=== PATIENT | male | born 1995 | race Two or more races ===

== ENCOUNTER 2020-09-27 17:51 | Emergency (ER) | payer SELFPAY ==
[~2020-09-27] VITALS: Ht 167.6 cm; Wt 90.9 kg
--- NOTE | 2020-09-27 19:37 | PHYS DOC ---
Past Medical History Past Medical History: No Pertinent History (MO TRIPATHI SUPERVISOR) Past Surgical History: No Surgical History (MO TRIPATHI APRN) Smoking Status: Never Smoker Alcohol Use: Occasionally (MO TRIPATHI APRN) General Adult EDM: Chief Complaint: COUGH HPI: HPI: Patient is a 24 year old male who presents with has had a cough since early August and for the last couple days has started running a fever. States every time he coughs he has lung pain and chest pain and shortness of breath. He states at times he gets into a coughing fit and it makes him dizzy or lightheaded. Patient has a temperature of 100.7 here in the ED. He states that he does not really have any pain until he coughs. He states that he is been coughing up phlegm with specks of blood in it. Patient states he been taking DayQuil and [id number] cough medication and cough drops. He states that 2 days ago he went and picked his mother up from the airport and she is Covid positive but she sat in the backseat and they had mask on. Patient denies any past medical history and states he does not smoke or vape. (OM TRIPATHI SUPERVISOR) Review of Systems: Review of Systems: Constitutional: + fever or chills. [] Eyes: Denies change in visual acuity. [] HENT: Denies nasal congestion or sore throat. [] Respiratory: + cough or +shortness of breath. [] Cardiovascular: +chest pain or denies edema. [] GI: Denies abdominal pain, nausea, vomiting, bloody stools or diarrhea. [] : Denies dysuria. [] Musculoskeletal: Denies back pain or joint pain. [] Integument: Denies rash. [] Neurologic: Denies headache, focal weakness or sensory changes. [] Endocrine: Denies polyuria or polydipsia. [] Lymphatic: Denies swollen glands. [] Psychiatric: Denies depression or anxiety. [] (MO TRIPATHI APRN) Heart Score: Risk Factors: Risk Factors: DM, Current or recent (<one month) smoker, HTN, HLP, family history of CAD, obesity. Risk Scores: Score 0 - 3: 2.5% MACE over next 6 weeks - Discharge Home Score 4 - 6: 20.3% MACE over next 6 weeks - Admit for Clinical Observation Score 7 - 10: 72.7% MACE over next 6 weeks - Early Invasive Strategies (MO TRIPATHI APRN) Current Medications: Current Medications Medications (Trade) Dose Ordered Sig/Negro Start Time Stop Time Status Last Admin Dose Admin Benzonatate (Tessalon Perle) 100 mg 1X ONCE 09/27/20 20:00 09/27/20 20:01 Ibuprofen (Motrin) 600 mg 1X ONCE 09/27/20 20:00 09/27/20 20:01 Prednisone (Prednisone) 50 mg 1X ONCE 09/27/20 20:00 09/27/20 20:01 (MO TRIPATHI APRN) Allergies: Allergies: Allergies Coded Allergies Type Severity Reaction Last Updated Verified No Known Drug Allergies 09/27/20 No (MO TRIPATHI APRN) Physical Exam: PE: Constitutional: Well developed, well nourished, no acute distress, non-toxic appearance. [] HENT: Normocephalic, atraumatic, bilateral external ears normal, oropharynx moist, no oral exudates, nose normal. [] Eyes: PERRLA, EOMI, conjunctiva normal, no discharge. [] Neck: Normal range of motion, no tenderness, supple, no stridor. [] Cardiovascular:Heart rate regular rhythm, no murmur [] Lungs & Thorax: Upper bilateral breath sounds clear lower diminished to auscultation [] Abdomen: Bowel sounds normal, soft, no tenderness, no masses, no pulsatile masses. [] Skin: Warm, dry, no erythema, no rash. [] Back: No tenderness, no CVA tenderness. [] Extremities: No tenderness, no cyanosis, no clubbing, ROM intact, no edema. [] Neurologic: Alert and oriented X 3, normal motor function, normal sensory function, no focal deficits noted. [] Psychologic: Affect normal, judgement normal, mood normal. [] (MO TRIPATHI APRN) Current Patient Data: Vital Signs: Vital Signs Date Time Temp Pulse Resp B/P (MAP) Pulse Ox O2 Delivery O2 Flow Rate FiO2 09/27/20 19:19 100.7 104 16 163/90 (114) Room Air 100.7 09/27/20 18:26 98 (MO TRIPATHI APRN) EKG: EKG: [] (MO TRIPATHI APRN) Radiology/Procedures: Radiology/Procedures: [] Impression: [place] [id number] IMAGING REPORT Signed PATIENT: CHARLIE COTTO ACCOUNT: [id number] : 1995 LOCATION: ER AGE: 24 SEX: M EXAM STATUS: REG ER ORD. PHYSICIAN: MO TRIPATHI APRN REASON: cough PROCEDURE: PORTABLE CHEST 1V AP chest. HISTORY: Cough AP view was taken of the chest. There are somewhat nodular densities noted in the lungs mainly on the left. Early infiltrates are possible. Pulmonary nodules are possible. There is blunting of the costophrenic angles possible small effusions. CT could potentially be of benefit or follow-up study. . IMPRESSION: 1. Small areas of infiltrate versus pulmonary nodules. 2. Small pleural effusions. 3. Follow-up study or CT could be of benefit. Electronically signed by: Jami Alba MD (09/27/2020 8:24 PM) [facility] DICTATED and SIGNED BY: JAMI ALBA MD DATE: 09/27/[id number] [address] [id number] IMAGING REPORT Signed PATIENT: CHARLIE COTTO ACCOUNT: [id number] : 1995 LOCATION: ER AGE: 24 SEX: M EXAM STATUS: REG ER ORD. PHYSICIAN: MO TRIPATHI APRN REASON: covid, soa, risk for PE, abnormal chest xray, OMNI 350, 100 ML IV PROCEDURE: CT ANGIOGRAPHY CHEST CTA scan of the Chest with Contrast (Pulmonary Embolism protocol) 09/27/2020 Clinical History: Shortness of breath. Covid 19. Technique: After the intravenous administration of 100 cc of Isovue-370, contiguous, 0.625 mm axial sections were obtained through the chest. 2 mm axial and 3D MIP coronal and sagittal reconstructed images were obtained. One or more of the following individualized dose reduction techniques were utilized for this study: 1. Automated exposure control. 2. Adjustment of the mA and/or kV according to patient size. 3. Use of iterative reconstruction technique. Findings: Comparison is made to a chest radiograph performed earlier today. No filling defect is seen within the major branches of either pulmonary artery. There is no CT evidence of pulmonary embolism. The heart and thoracic aorta are within normal limits. Enlarged hilar lymph nodes are seen which measure 1 to 2.3 cm in size. There are small bilateral pleural effusions, right greater than left. Small focal areas of infiltrate is seen involving the periphery of the right upper lobe, the left upper lobe, the medial aspect of the left lower lobe dependent right lower lobe. No pneumothorax is seen. Impression: There is no CT evidence of pulmonary embolism. Electronically signed by: Kyle Nova MD (09/27/2020 10:08 PM) [id number] DICTATED and SIGNED BY: KYLE NOVA MD DATE: 09/27/20 [id number] (MO TRIPATHI APRN) Course & Med Decision Making: Course & Med Decision Making Pertinent Labs and Imaging studies reviewed. (See chart for details) COVID-19 CRITERIA: The patient was evaluated during the global COVID-19 pandemic, and that diagnosis was suspected/considered upon their initial presentation. Their evaluation, treatment and testing was consistent with current guidelines for patients who present with complaints or symptoms that may be related to COVID-19. See HPI. Alert and oriented x4. Speaks in full complete sentences. Ambulatory with steady gait. Skin pink warm and dry. Vital signs are within normal limits. Lungs are clear in upper lobes and diminished in lower lobes. Patient be tested for Covid in the ED. He is given prednisone, Tessalon Perle and ibuprofen in the ED. IMPRESSION: 1. Small areas of infiltrate versus pulmonary nodules. 2. Small pleural effusions. 3. Follow-up study or CT could be of benefit. I have ordered a CT angio of the chest not only due to the findings on the chest x-ray but also due to his D-dimer being elevated and patient is very short of breath. [] (MO TRIPATHI APRN) Dragon Disclaimer: Dragon Disclaimer: This electronic medical record was generated, in whole or in part, using a voice recognition dictation system. (MO TRIPATHI SUPERVISOR) COVID-19 Patient Risks: Age 65 or older: No Sign of co-morbidity: Yes Exp to person + for COVID: Yes Exp to PUI: No Travel from affected area: No Lower respiratory symptoms: Yes Fever: Yes Other: No (MO TRIPATHI SUPERVISOR) PPE Use: Full PPE with N95 mask or PAPR: Yes (MO TRIPATHI SUPERVISOR) Departure Departure Impression: Primary Impression: Person under investigation for COVID-19 Additional Impression: Pneumonia Qualified Codes: J18.9 - Pneumonia, unspecified organism Disposition: DC HOME SELF CARE/HOMELESS Condition: STABLE Referrals: NO PCP (PCP) Patient Instructions: Pneumonia, Adult Additional Instructions: Quarantine until you get your test results in 48 hours. Take medication as prescribed and with food. If you begin having severe shortness of breath or severe chest pain return to emergency room. Drink plenty of fluids. Take Tylenol or ibuprofen for any pain or fever. Definicin Se le realiz la prueba de deteccin del COVID-19 o se le diagnostic dicha enfermedad. Es enoc infeccin ocasionada por un nuevo tipo de coronavirus. En la mayora de los casos, el COVID-19 provoca sntomas similares a los del resfriado. En algunas personas, puede ocasionar sntomas ms graves, evelio problemas respiratorios. No existe un tratamiento para el virus COVID-19. El cuerpo elimina la infeccin con el tiempo. El cuidado personal ayuda a aliviar el malestar. Pasos que debe seguir 1. Cuidados personales Descanse cuando sea necesario. Los hbitos saludables pueden ayudarlo a sentirse mejor. Algunas medidas para lograr cambios incluyen lo siguiente: - Elija alimentos saludables, evelio frutas y verduras. Cee abundante cantidad de agua sonia todo el da. - Duerma arpan por la noche. - Si fuma, intente no hacerlo. [place] ayudar a mejorar la respiracin. - Evite el alcohol. 2. Mantenga sanos a los dems El virus puede contagiarse a otras personas. Cada vez que estornuda o tose, se liberan gotitas. Las gotitas pueden entrar en la boca, la nariz o los ojos de las personas que se encuentran cerca de usted y ocasionar la infeccin. Para reducir las probabilidades de contagiar el virus COVID-19 a otros, tenga en cuenta lo siguiente: - Qudese en casa el tiempo que el mdico se lo indique. Es posible que deba quedarse en casa hasta que la enfermedad desaparezca. Salga nicamente para recibir atencin mdica o en french de urgencia. - Evite las reas pblicas, los eventos o el transporte pblico. No reanude las actividades laborales o escolares hasta que el mdico lo autorice. - Llame previamente si necesita asistir a un centro mdico. Avise que es posible que haya contrado COVID-19. [place] ayudar a que le indiquen adonde debe dirigirse. Tambin pueden pedirle que use enoc mscara facial cuando vaya al consultorio. Si llama a los servicios de asistencia mdica de urgencias, avseles que es posible que haya contrado COVID-19. Mientras est en casa: - Evite el contacto directo con otras personas. Mantngase a enoc distancia aproximada de 2 metros. Si es posible, pasen la mayor parte del tiempo en norris separadas. - Use enoc mscara facial si estar en contacto directo con otras personas, por ejemplo, si compartir enoc habitacin o un vehculo. - Pida a alguien que limpie las superficies comunes de la casa. Limpie picaportes, mesadas y lavamanos con limpiadores domsticos todos los marshall. - Al toser o estornudar, cbrase con un pauelo de papel. Despus de usarlo, deschelo de inmediato. Si no tiene un pauelo de papel, tosa o estornude en el pliegue del codo. - Lvese las aidan con frecuencia. Lvese las aidan despus de estornudar o toser. Lvese con agua y jabn sonia, al menos, 20 segundos. Si no dispone de agua y jabn, use un limpiador de aidan a base de alcohol. - No cocine para otros. Evite compartir objetos personales, evelio tenedores, cucharas o cepillos de dientes. - Mientras est enfermo, evite el contacto directo con las mascotas. No hay indicios de si el virus se transmite a las mascotas. Esta es enoc medida de seguridad que debe tenerse en cuenta hasta que se sepa ms acerca de sharmaine virus. El aislamiento puede ser frustrante. La interaccin social puede ayudar. Mantngase en contacto con amigos y familiares por telfono u otros medios tecnolgicos. Puede interactuar con otras personas en el hogar, nyasia mantenga enoc distancia macias de aproximadamente 2 metros. Seguimiento Las pruebas para confirmar la presencia del COVID-19 pueden demorar algunos da s. Es posible que deba seguir los pasos mencionados anteriormente hasta que estn los resultados de las pruebas. Lo llamarn del consultorio mdico para saber si amato habido algn cambio en galvez matt. Tambin le avisarn cuando pueda volver a estar cerca de otras personas. Problemas a los que debe estar atento Comunquese con el mdico si no se recupera segn lo previsto o si tiene problemas evelio los siguientes: - Dificultad para respirar - Dolor de pecho - Empeoramiento de los sntomas Si israel que tiene enoc urgencia, llame a los servicios de asistencia mdica de urgencias de inmediato. [facility] Albuterol Sulfate (PROAIR HFA INHALER) 8.5 Gm Hfa.aer.ad 1 PUFF INH PRN Q6HRS PRN for SHORTNESS OF BREATH, #1 INHALER 0 Refills Prov: MO TRIPATHI SUPERVISOR 09/27/20 Benzonatate (TESSALON PERLE) 100 Mg Capsule 1 CAP PO TID, #30 CAP Prov: MO TRIPATHI SUPERVISOR 09/27/20 Azithromycin (AZITHROMYCIN TABLET) 250 Mg Tablet 1 PKG PO UD for 5 Days, #6 TAB 0 Refills 2 the first day followed by 1 for days 2-5 Prov: MO TRIPATHI SUPERVISOR 09/27/20 Methylprednisolone (MEDROL) 4 Mg Tab.ds.pk 1 PKG PO UD, #1 PKG Prov: MO TRIPATHI SUPERVISOR 09/27/20 Attending Signature Attending Signature I have reviewed the PA/METAL ROOFING MECHANIC's note and plan of care. I was available for consultation as needed during the patient's visit in the emergency department. I agree with the clinical impression, plan, and disposition. (SORAIDA STEIN DO) MO TRIPATHI SUPERVISOR Sep 27, 2020 19:37 SORAIDA STEIN DO Sep 27, 2020 23:22
[2020-09-27] MEDS ORDERED: predniSONE 10 MG TABLET PO ONE (20:00)
[2020-09-27] MEDS ORDERED: BENZONATATE 100 MG CAPSULE. PO ONE (20:00)
[2020-09-27] MEDS ORDERED: IBUPROFEN 200 MG TABLET. PO ONE (20:00)
[2020-09-27 20:11] LABS: BASO # 0.1 x10^3/uL (0.0-0.2); BASO % 1 % (0-3); EOS # 1.6 x10^3/uL (0.0-0.7); EOS % 15 % (0-3); HEMATOCRIT 39.5 % (39.0-53.0); HEMOGLOBIN 13.6 g/dL (13.0-17.5); LYMPH # 2.9 x10^3/uL (1.0-4.8); LYMPH % 28 % (24-48); MEAN CORPUSCULAR HEMOGLOBIN 28 pg (25-35); MEAN CORPUSCULAR HGB CONC 34 g/dL (31-37); MEAN CORPUSCULAR VOLUME 83 fL (79-100); MONO # 0.9 x10^3/uL (0.0-1.1); MONO % 9 % (0-9); NEUT # 4.9 x10^3/uL (1.8-7.7); NEUT % 48 % (31-73); PLATELET COUNT 352 x10^3/uL (140-400); RED BLOOD COUNT 4.77 x10^6/uL (4.30-5.70); RED CELL DISTRIBUTION WIDTH 14.8 % (11.5-14.5); WHITE BLOOD COUNT 10.3 x10^3/uL (4.0-11.0)
[2020-09-27 20:12] LABS: CALCIUM 8.9 mg/dL (8.5-10.1); CREATININE 0.7 mg/dL (0.7-1.3); POTASSIUM 3.8 mmol/L (3.5-5.1)
[2020-09-27 20:19] LABS: ALBUMIN 3.1 g/dL (3.4-5.0); ALBUMIN/GLOBULIN RATIO 0.5 (1.0-1.7); TOTAL BILIRUBIN 0.3 mg/dL (0.2-1.0); TOTAL PROTEIN 8.8 g/dL (6.4-8.2)
--- NOTE | 2020-09-27 20:27 | RAD ---
AP chest. HISTORY: Cough AP view was taken of the chest. There are somewhat nodular densities noted in the lungs mainly on the left. Early infiltrates are possible. Pulmonary nodules are possible. There is blunting of the costophrenic angles possible small effusions. CT could potentially be of benefit or follow-up study. . IMPRESSION: 1. Small areas of infiltrate versus pulmonary nodules. 2. Small pleural effusions. 3. Follow-up study or CT could be of benefit. Electronically signed by: Wayne Alba MD (09/27/2020 8:24 PM) [facility]
[2020-09-27 20:41] LABS: % EOS 11 % (0-5); % LYMPHS 26 % (24-48); % MONOS 8 % (0-10); % SEGS 55 % (35-66); PLT ESTIMATE ADEQUATE (ADEQUATE)
[2020-09-27] MEDS ORDERED: IV NORMAL SALINE 1000ML BAG 1,000 ML IV ONE (20:45)
[2020-09-27] MEDS ORDERED: IOHEXOL 350 MG/ML 100 ML VIAL. IV ONE (21:00)
[2020-09-27] MEDS ORDERED: CONTRAST GIVEN. MC PRN (21:15)
--- NOTE | 2020-09-27 22:12 | RAD ---
CTA scan of the Chest with Contrast (Pulmonary Embolism protocol) 09/27/2020 Clinical History: Shortness of breath. Covid 19. Technique: After the intravenous administration of 100 cc of Isovue-370, contiguous, 0.625 mm axial sections were obtained through the chest. 2 mm axial and 3D MIP coronal and sagittal reconstructed images were obtained. One or more of the following individualized dose reduction techniques were utilized for this study: 1. Automated exposure control. 2. Adjustment of the mA and/or kV according to patient size. 3. Use of iterative reconstruction technique. Findings: Comparison is made to a chest radiograph performed earlier today. No filling defect is seen within the major branches of either pulmonary artery. There is no CT evidence of pulmonary embolism. The heart and thoracic aorta are within normal limits. Enlarged hilar lymph nodes are seen which measure 1 to 2.3 cm in size. There are small bilateral pleural effusions, right greater than left. Small focal areas of infiltrate is seen involving the periphery of the right upper lobe, the left upper lobe, the medial aspect of the left lower lobe dependent right lower lobe. No pneumothorax is seen. Impression: There is no CT evidence of pulmonary embolism. Electronically signed by: Aiden Nova MD (09/27/2020 10:08 PM) [id number]
[2020-09-27] MEDS ORDERED: AZIT250T6 PO (22:17)
[2020-09-27] MEDS ORDERED: ALBU2.5V8 INH (22:17)
[2020-09-27] MEDS ORDERED: BENZ100C PO (22:17)
[2020-09-27] MEDS ORDERED: METH4TAB2 PO (22:17)
[2020-09-27 22:40] VITALS: BP 116/70
--- NOTE | 2020-09-30 09:45 | NUR ---
IP: Attempted to call pt COVID results. No answer. Left a voicemail to return the call.
--- NOTE | 2020-09-30 11:12 | NUR ---
IP: Pt returned the call. I informed him of the negative COVID test. Pt verbalized understanding.
== END 2020-09-27 22:44 | disposition home or self-care (01) ==
LOC: ER 17:51
DX: J18.9 Pneumonia, unspecified organism (principal); Z20.828 Contact with and (suspected) exposure to other viral communicable diseases
CPT/HCPCS: 36415; 71045; 71275; 80053; 85007; 85025; 85379; 96360; 99285; C9803; J7030; J7512; Q9967; U0003